=== PATIENT | male | born 1980 | race Caucasian/White ===

== ENCOUNTER 2019-06-23 10:41 | Emergency (ER) | payer OTHER ==
[~2019-06-23] VITALS: Ht 175.3 cm; Wt 95.3 kg
[2019-06-23 11:20] LABS: ABSOLUTE EOSINOPHILS 0.7 thou/uL (0.0-0.7); ABSOLUTE LYMPHOCYTES 1.7 thou/uL (0.8-5.3); ABSOLUTE MONOCYTES 1.3 thou/uL (0.0-1.2); ABSOLUTE NEUTROPHILS 2.2 thou/uL (1.6-8.1); EOSINOPHILS 11.9 %; HEMATOCRIT 46.1 % (42.0-52.0); HEMOGLOBIN 16.2 gm/dL (14.0-18.0); LYMPHOCYTES 28.4 %; MCH 30.1 pg (26.0-34.0); MCHC 35.2 g/dL (28.0-37.0); MCV 85.5 fL (80.0-100.0); MONOCYTES 22.4 %; NUCLEATED RBCS 0 /100WBC; PLATELET COUNT* 212 thou/uL (150-400); POLYS 37.3 %; RDW-CV 12.7 % (10.5-14.5); WBC 5.9 thou/uL (4.0-11.0)
[2019-06-23 11:34] LABS: PROTIME 9.9 Seconds (9.20-11.50)
[2019-06-23 11:53] LABS: ANION GAP 9 mmol/L (7-16); BUN 9 mg/dL (7-18); CALCIUM 8.7 mg/dL (8.5-10.1); CHLORIDE 101 mmol/L (98-107); CO2 28 mmol/L (21-32); GLUCOSE 109 mg/dL (70-99); POTASSIUM 3.7 mmol/L (3.5-5.1); SODIUM 138 mmol/L (136-145)
[2019-06-23 12:02] LABS: ALBUMIN 4.2 g/dL (3.4-5.0); ALKALINE PHOSPHATASE 115 U/L (46-116); LIPASE 157 U/L (73-393); SGOT 15 U/L (15-37); SGPT 37 U/L (30-65); TOTAL BILIRUBIN 0.2 mg/dL (<0.1-1.0); TOTAL PROTEIN 7.8 g/dL (6.4-8.2); TROPONIN-I LEVEL <0.06 ng/mL (<0.06)
[2019-06-23] MEDS ORDERED: CARAFATE 1 GM TA1 GM PO (14:05)
[2019-06-23 14:13] VITALS: BP 119/87
--- NOTE | 2019-06-23 16:02 | EKG ---
[place] [address] ELECTROCARDIOGRAM REPORT Name: JEREMY ROJAS Room: [facility]#: [id number] Admission: 06/23/19 Attend Phys: Discharge: 06/23/19 Date of : 78 Report #: [id number] THIS REPORT FOR: //name// [facility] ED Test Date: 2019-06-23 Test Time: 10:43:42 Pat Name: JEREMY ROJAS Department: Room: Gender: M Washing Machine Mechanic: NAKUL : 1980 Requested By: Judy Alvarez Order Number: [id number] MD: Aristides Sargent Measurements Intervals [place] Rate: 90 P: 63 IA: 122 QRS: 44 QRSD: 79 T: -13 QT: 330 QTc: 404 Interpretive Statements Sinus rhythm Borderline T abnormalities, inferior leads No previous ECG available for comparison Electronically Signed On 06-23-2019 16:01:45 CDT by Aristides Sargent [email or web address] <ELECTRONICALLY SIGNED> By: Aristides Sargent MD, [facility] 06/23/19 1601 1043 1043 Aristides Sargent MD, FACC /EPI
== END 2019-06-23 14:14 | disposition home or self-care (01) ==
LOC: M.ERS 10:41
PROVIDERS: Personal Emergency Response Attendant
DX: R07.89 Other chest pain (principal); F41.9 Anxiety disorder, unspecified; F17.200 Nicotine dependence, unspecified, uncomplicated